=== PATIENT | male | born 1970 | race Caucasian/White ===

== ENCOUNTER 2024-02-15 21:49 | Emergency (ER) | payer MEDICAID, SELFPAY ==
[2024-02-15] VITALS (16 sets, daily range): BP systolic 118–135; BP diastolic 82–86; PULSE 85–103; TEMP 37.6; O2SAT 95–99; BMI 35.4
--- NOTE | 2024-02-15 22:12 | ECG_ITS ---
The [facility] Test Date: 2024-02-15 Pat Name: SINA GONZALES Department: Room: - Gender: Male [employer]: : 1970 Requested By: [id number] Order Number: [id number] Reading MD: JONI HOLM Measurements Intervals [place] Rate: 101 P: 39 SD: 134 QRS: 25 QRSD: 84 T: 43 QT: 326 QTc: 384 Interpretive Statements 1120 Sinus tachycardia 4068 Nonspecific [place] abnormality 9140 abnormal rhythm ECG No previous ECG available for comparison Electronically Signed On 02-18-2024 20:19:37 EST by JONI HOLM
--- NOTE | 2024-02-15 22:12 | ED_ITS ---
HPI - Nausea/Vomiting/Diarrhea General Chief complaint: Nausea/Vomiting/Diarrhea Stated complaint: VOMITING, WEAK Time Seen by Provider: 02/15/24 21:53 History of Present Illness HPI Narrative: 53-year-old male presents for nausea vomiting and diarrhea and feeling weak. He has had this for just over 24 hours. No hematemesis or hematochezia. He has not been around anybody who has been ill. He has not been able to eat or drink much over the past day and he states that he went to another hospital and it was a very long wait so he went home and after he got home he was weak and he fell but did not injure himself. Related Data Previous Rx's ?Medication ?Instructions ?Recorded ondansetron 4 mg disintegrating 4 mg PO Q6H PRN nausea and 02/15/24 tablet vomiting #20 tabs Allergies Allergy/AdvReac Type Severity Reaction Status Date / Time pregabalin (From Lyrica) Allergy hives Verified 02/15/24 22:15 topiramate (From Topamax) Allergy Hives Verified 02/15/24 22:15 Review of Systems ROS Narrative A ten point review of systems is negative except as noted above. [facility] Medical History (Updated 02/15/24 @ 23:53 by Jesus Castro MD) Chronic pain ?G89.29 - Other chronic pain (ICD-10) FH: cholecystectomy ?Z83.79 - Family history of other diseases of the digestive system (ICD-10) Gall bladder disease ?K82.9 - Disease of gallbladder, unspecified (ICD-10) Social History Little interest or pleasure in doing things: not at all Feeling down, depressed, or hopeless: not at all Exam Narrative Exam Narrative: Nurses note and vital signs reviewed and patient is not hypoxic. General: The patient appears in no apparent distress. Skin: Warm, dry, no pallor noted. There is no rash noted. Head: Normocephalic, atraumatic Eye: Normal conjunctiva, no drainage Ears, Nose, Mouth, and Throat: oral mucosa is moist. Nares patent. Cardiovascular: Regular Rate and Rhythm Respiratory: Patient is in no distress, no accessory muscle use, lungs are clear to auscultation, no wheezing, rales or rhonchi GI: Obese soft and nontender Musculoskeletal: The patient has no evidence of calf tenderness, no pitting edema, symmetrical pulses noted bilaterally Neurological: A&O, normal speech Psychiatric: Cooperative Constitutional Vital Signs, click to edit/add: Last Vital Signs Temp 99.6 F 02/15/24 22:08 Pulse 93 H 02/15/24 23:25 Resp 20 02/15/24 23:25 BP 124/82 02/15/24 23:25 Pulse Ox 96 02/15/24 23:25 O2 Del Method Room Air 02/15/24 23:25 Course Vital Signs Vital signs: Vital Signs Temperature 99.6 F 02/15/24 22:08 Pulse Rate 102 H 02/15/24 22:08 Respiratory Rate 18 02/15/24 22:08 Pulse Oximetry 98 02/15/24 22:08 Oxygen Delivery Method Room Air 02/15/24 22:08 Temperature 99.6 F 02/15/24 22:08 Pulse Rate 93 H 02/15/24 23:25 Respiratory Rate 20 02/15/24 23:25 Blood Pressure 124/82 02/15/24 23:25 Pulse Oximetry 96 02/15/24 23:25 Oxygen Delivery Method Room Air 02/15/24 23:25 MDM - Nausea/Vomiting/Diarrhea MDM Narrative Medical decision making narrative: Blood work is essentially normal. He was given IV fluids and IV Zofran and is feeling improved. He is able to tolerate some p.o. liquids now and is discharged home with a prescription for Zofran. Treatment diagnosis and follow- up were discussed with the patient. Differential Diagnosis Differential diagnosis: Likely food poisoning, gastroenteritis and dehydration Lab Data Attestation: I reviewed the patient's lab results. Labs: Lab Results 02/15/24 Range/Units 22:20 WBC 7.6 (4.0-11.0) 10^3/uL RBC 6.11 H (4.70-6.10) 10^6/uL Hgb 16.8 (14.0-18.0) g/dL Hct 50.8 (42.0-54.0) % MCV 83.1 (80.0-94.0) fL MCH 27.5 (25.9-34.0) pg MCHC 33.1 (29.9-35.2) g/dL RDW 12.9 (11.0-15.0) % Plt Count 257 (150-450) 10^3/uL MPV 9.8 (9.5-13.5) fL Neut % (Auto) 71.1 (43.0-75.0) % Lymph % (Auto) 17.0 L (20.5-60.0) % [place] % (Auto) 9.5 (1.7-12.0) % Eos % (Auto) 0.5 L (0.9-7.0) % Baso % (Auto) 0.3 (0.2-2.0) % Neut # (Auto) 5.4 (1.4-6.5) 10^3/uL Lymph # (Auto) 1.3 (1.2-3.8) 10^3/uL [place] # (Auto) 0.7 (0.3-0.8) 10^3/uL Eos # (Auto) 0.0 (0.0-0.7) 10^3/uL Baso # (Auto) 0.0 (0.0-0.1) 10^3/uL Abs Immat Gran (auto) 0.12 H (0.00-0.03) 10^3/uL Imm/Tot Granulo (auto) 1.6 H (0.0-0.5) % Sodium 138 (136-145) mmol/L Potassium 3.4 L (3.5-5.1) mmol/L Chloride 103 (98-107) mmol/L Carbon Dioxide 23.9 (21.0-32.0) mmol/L Anion Gap 14.5 BUN 25.0 H (7.0-18.0) mg/dL Creatinine 1.03 (0.70-1.30) mg/dL Est GFR ( Amer) >60 (>=60 mL/min/1.73m^2) Est GFR (Non-Af Amer) >60 (>=60 mL/min/1.73m^2) BUN/Creatinine Ratio 24.3 Glucose 97 (74-106) mg/dL Calcium 8.7 (8.5-10.1) mg/dL ECG Data Attestation: I personally reviewed and interpreted this ECG as follows: (EKG on my interpretation shows sinus rhythm with a rate of 101. No acute change.) Discharge Plan Discharge Chief Complaint: Nausea/Vomiting/Diarrhea Clinical Impression: Nausea, vomiting, and diarrhea Patient Disposition: Home, Self-Care Time of Disposition Decision: 23:53 Condition: Good Mode of Transportation: Private Vehicle Prescriptions / Home Meds: New ondansetron 4 mg tablet,disintegrating 4 mg PO Q6H PRN (Reason: nausea and vomiting) Qty: 20 0RF Print Language: Kosovan Instructions: Acute Nausea and Vomiting (ED) Referrals: Solitario Johnson [Primary Care Provider] - 1 week
[2024-02-15] MEDS: 0.9 % SODIUM CHLORIDE 1,000 ML 1000 ML IV (22:28)
[2024-02-15] MEDS: ONDANSETRON PF 4 MG/2 ML VIAL IV (22:30)
[2024-02-15 22:55] LABS: Basophils Percent Auto 0.3 % (0.2-2.0); Eosinophils Percent Auto 0.5 % (0.9-7.0); Hematocrit 50.8 % (42.0-54.0); Hemoglobin 16.8 g/dL (14.0-18.0); Immature Granulocytes Abs Auto 0.12 10^3/uL (0.00-0.03); Immature Granulocytes Pct Auto 1.6 % (0.0-0.5); Lymphocytes Absolute Auto 1.3 10^3/uL (1.2-3.8); Mean Corpuscular HGB Conc 33.1 g/dL (29.9-35.2); Mean Corpuscular Hemoglobin 27.5 pg (25.9-34.0); Mean Corpuscular Volume 83.1 fL (80.0-94.0); Mean Platelet Volume 9.8 fL (9.5-13.5); Monocytes Absolute Auto 0.7 10^3/uL (0.3-0.8); Monocytes Percent Auto 9.5 % (1.7-12.0); Neutrophils Absolute Auto 5.4 10^3/uL (1.4-6.5); Neutrophils Percent Auto 71.1 % (43.0-75.0); Platelet Count 257 10^3/uL (150-450); Red Blood Count 6.11 10^6/uL (4.70-6.10); Red Cell Distribution Width 12.9 % (11.0-15.0); White Blood Count 7.6 10^3/uL (4.0-11.0)
[2024-02-15 23:06] LABS: Anion Gap 14.5; BUN Creatinine Ratio 24.3; Calcium 8.7 mg/dL (8.5-10.1); Carbon Dioxide 23.9 mmol/L (21.0-32.0); Chloride 103 mmol/L (98-107); Estimated GFR (African America >60 (>=60 mL/min/1.73m^2); Estimated GFR (Non-African Ame >60 (>=60 mL/min/1.73m^2); Glucose 97 mg/dL (74-106); Potassium 3.4 mmol/L (3.5-5.1); Sodium 138 mmol/L (136-145)
[2024-02-15] MEDS: KETOROLAC TROMETHAMINE 30 MG/ML VIAL IVP (23:09)
[2024-02-16] MEDS: ONDANSETRON PF 4 MG/2 ML VIAL IV (00:03)
== END 2024-02-16 00:15 | disposition home or self-care (01) ==
PROVIDERS: Emergency Provider Emergency Medicine; PCP Family Medicine
DX: R11.2 Nausea with vomiting, unspecified (principal); R19.7 Diarrhea, unspecified; Z91.81 History of falling
CPT/HCPCS: 36415; 80048; 85025; 93005; 96361; 96374; 96375; 96376; 99285; J1885; J2405

== ENCOUNTER 2024-08-22 11:34 | Emergency (ER) | payer MEDICAID, SELFPAY ==
[2024-08-22 11:38] VITALS: BP 146/89; PULSE 93; TEMP 36.6; O2SAT 95; BMI 35.4
--- NOTE | 2024-08-22 11:51 | PC.NURSE ---
rigt ankle and foot swelling and pt reports painful
--- NOTE | 2024-08-22 12:10 | XR_ITS ---
The [address] [address] Patient Name: SINA GONZALES MRN: [id number] date: 1970 Sex: M Assigned Patient Location: ER Current Patient Location: ER Accession/Order Number: [id number] Exam Date: 08/22/2024 12:44 Report Date: 08/22/2024 12:47 At the request of: FIOR JACOB MD Procedure: XR foot RT min 3V XR ankle RT min 3V, XR foot RT min 3V 08/22/2024 12:34 PM SIGNS AND SYMPTOMS: He right foot pain, ankle pain, swelling PROTOCOL: Frontal, lateral, and oblique radiographs of the right ankle and right foot COMPARISON: None FINDINGS: Right ankle: The ankle mortise is preserved. There is no fracture or dislocation. There is a soft tissue swelling. There is mild Achilles surface calcaneal spurring. Right foot: There is mild narrowing of the first metatarsophalangeal joint space. There is no fracture or dislocation. There is an os perineum along the lateral margin of the midfoot which is a normal variant. The joint spaces are preserved. There is nonspecific diffuse soft tissue swelling. XR/XR foot RT min 3V IMPRESSION: Right ankle: No fracture. Nonspecific soft tissue swelling is noted diffusely. Right foot: No fracture. Nonspecific diffuse soft tissue swelling is noted. Impression dictated by: Luis Alberto Freitas M.D. 08/22/2024 12:47 PM Dictation Location: [place] [id number] Electronically authenticated by: [id number] Y Date: 08/22/2024 12:47
--- NOTE | 2024-08-22 12:10 | XR_ITS ---
The [address] [address] Patient Name: SINA GONZALES MRN: [id number] date: 1970 Sex: M Assigned Patient Location: ER Current Patient Location: ER Accession/Order Number: [id number] Exam Date: 08/22/2024 12:44 Report Date: 08/22/2024 12:47 At the request of: FIOR JACOB MD Procedure: XR foot RT min 3V XR ankle RT min 3V, XR foot RT min 3V 08/22/2024 12:34 PM SIGNS AND SYMPTOMS: He right foot pain, ankle pain, swelling PROTOCOL: Frontal, lateral, and oblique radiographs of the right ankle and right foot COMPARISON: None FINDINGS: Right ankle: The ankle mortise is preserved. There is no fracture or dislocation. There is a soft tissue swelling. There is mild Achilles surface calcaneal spurring. Right foot: There is mild narrowing of the first metatarsophalangeal joint space. There is no fracture or dislocation. There is an os perineum along the lateral margin of the midfoot which is a normal variant. The joint spaces are preserved. There is nonspecific diffuse soft tissue swelling. XR/XR ankle RT min 3V IMPRESSION: Right ankle: No fracture. Nonspecific soft tissue swelling is noted diffusely. Right foot: No fracture. Nonspecific diffuse soft tissue swelling is noted. Impression dictated by: Luis Alberto Freitas M.D. 08/22/2024 12:47 PM Dictation Location: [place] [address] Electronically authenticated by: [id number] Y Date: 08/22/2024 12:47
[2024-08-22] MEDS: OXYCODONE HCL/ACETAMINOPHEN 5MG/325MG 1 TAB PO (12:22)
[2024-08-22] MEDS: KETOROLAC TROMETHAMINE 60 MG/2 ML VIAL IM (12:22)
[2024-08-22] MEDS: METHYLPREDNISOLONE SOD SUCC PF 40 MG/ML VIAL IM (12:23)
--- NOTE | 2024-08-22 14:35 | ED.EXTPRO1 ---
HPI - Extremity Problem General Chief complaint: Extremity Problem, Nontraumatic Stated complaint: LOWER EXTREMITY PAIN - GOUT Time Seen by Provider: 08/22/24 12:01 Source: patient Mode of arrival: walk-in History of Present Illness HPI Narrative: The patient is a 53-year-old male is coming to the ER with a right ankle foot pain. That started over the last 24 hours, have a history of gout and he previously was taking allopurinol that was stopped almost a year ago. The patient admits that he does not eat a lot of red meat There is no fever chills or no fall or trauma Patient has been 10 out of 10 pain in the right foot He did take some indomethacin before arrival and he also take Tylenol Related Data Home Medications ?Medication ?Instructions ?Recorded ?Confirmed acetaminophen 300 mg-codeine 60 mg 1 tab PO BID PRN pain 08/22/24 08/22/24 tablet albuterol sulfate 90 mcg/actuation 2 puff inhalation Q4H PRN 08/22/24 08/22/24 aerosol inhaler shortness of breath or wheezing amoxicillin 875 mg tablet 875 mg PO BID 08/22/24 08/22/24 ciclopirox 1 % shampoo 5 ml topical .2 tomes a wk 08/22/24 08/22/24 potassium citrate 15 mEq (1,620 15 meq PO DAILY 08/22/24 08/22/24 mg) tablet,extended release tamsulosin 0.4 mg capsule 0.4 mg PO DAILY 08/22/24 08/22/24 tizanidine 4 mg tablet 4 mg PO BID PRN muscle spasticity 08/22/24 08/22/24 Previous Rx's ?Medication ?Instructions ?Recorded diclofenac sodium 75 mg 75 mg PO BID PRN pain #20 tabs 08/22/24 tablet,delayed release prednisone 50 mg tablet 50 mg PO DAILY 5 days #5 tabs 08/22/24 Allergies Allergy/AdvReac Type Severity Reaction Status Date / Time pregabalin (From Lyrica) Allergy hives Verified 02/15/24 22:15 topiramate (From Topamax) Allergy Hives Verified 02/15/24 22:15 Review of Systems ROS Status of ROS 10 or more systems reviewed and unremarkable except as noted in history and below [facility] Medical History (Updated 08/22/24 @ 14:35 by Noni Burr MD) Chronic pain ?G89.29 - Other chronic pain (ICD-10) FH: cholecystectomy ?Z83.79 - Family history of other diseases of the digestive system (ICD-10) Gall bladder disease ?K82.9 - Disease of gallbladder, unspecified (ICD-10) Social History Little interest or pleasure in doing things: not at all Feeling down, depressed, or hopeless: not at all Exam Narrative Exam Narrative: Nurses notes and vital signs reviewed and patient is not hypoxic. General: Well-appearing and in no apparent distress. Skin: Warm, dry, no pallor noted. No rash. Head: Normocephalic, atraumatic. Right lower extremity: The patient does have edema in the right lower extremity mostly from the mid tibia down his ankle There is no redness and there is edema and tenderness on palpation but the patient have a good anterior tibial pulse and no vascular injury detected or any change in the skin that is concerning for any ischemic incident The patient still have full range of movement in the ankle Constitutional Vital Signs, click to edit/add: Last Vital Signs Temp 97.9 F 08/22/24 11:38 Pulse 93 H 08/22/24 11:38 Resp 08/22/24 11:38 BP 146/89 H 08/22/24 11:38 Pulse Ox 08/22/24 11:38 O2 Del Method Room Air 08/22/24 11:38 Course Vital Signs Vital signs: Vital Signs Temperature 97.9 F 08/22/24 11:38 Pulse Rate 93 H 08/22/24 11:38 Respiratory Rate 18 08/22/24 11:38 Blood Pressure 146/89 H 08/22/24 11:38 Pulse Oximetry 08/22/24 11:38 Oxygen Delivery Method Room Air 08/22/24 11:38 Temperature 97.9 F 08/22/24 11:38 Pulse Rate 93 H 08/22/24 11:38 Respiratory Rate 08/22/24 11:38 Blood Pressure 146/89 H 08/22/24 11:38 Pulse Oximetry 08/22/24 11:38 Oxygen Delivery Method Room Air 08/22/24 11:38 MDM - Extremity (Nontraumatic) MDM Narrative Medical decision making narrative: Duplex of the right lower extremity showed no DVT X-ray of the right ankle and foot shows only edema of the soft tissue Patient have no tenderness upon palpation of the posterior aspect of the right ankle and no suspicion of any Achilles injury at the moment But the patient presentation concerning for gout attack and he was started on prednisone mention to Luis for pain Patient instructed on hydration and elevation of the leg and also monitoring symptoms The patient is to follow up with primary care physician in next 2-3 days or to return to the emergency department should any of the signs or symptoms worsen or new symptoms develop. The patient agrees with the following Diagnosis and Treatment plan and the patient will be discharged home. Discharge Plan Discharge Chief Complaint: Extremity Problem, Nontraumatic Clinical Impression: Arthritis, Gout attack Patient Disposition: Home, Self-Care Time of Disposition Decision: 14:35 Condition: Good Prescriptions / Home Meds: New prednisone 50 mg tablet 50 mg PO DAILY 5 Days Qty: 5 0RF diclofenac sodium 75 mg tablet,delayed release (DR/EC) 75 mg PO BID PRN (Reason: pain) Qty: 20 0RF No Action acetaminophen-codeine 300-60 mg tablet 1 tab PO BID PRN (Reason: pain) albuterol sulfate 90 mcg/actuation HFA aerosol inhaler 2 puff INHALATION Q4H PRN (Reason: shortness of breath or wheezing) amoxicillin 875 mg tablet 875 mg PO BID ciclopirox 1 % shampoo 5 ml TOPICAL .2 tomes a wk potassium citrate 15 mEq tablet extended release 15 meq PO DAILY tamsulosin 0.4 mg capsule 0.4 mg PO DAILY tizanidine 4 mg tablet 4 mg PO BID PRN (Reason: muscle spasticity) Print Language: Icelandic Instructions: Gout (ED) Additional Instructions: Please take all the medication with food not on empty stomach Referrals: JANAE VANCE [Primary Care Provider, Family Practice] - 1 week Discharge Date/Time: 08/22/24 14:44
== END 2024-08-22 14:44 | disposition home or self-care (01) ==
PROVIDERS: Emergency Provider Emergency Medicine; PCP Family Medicine
DX: M13.871 Other specified arthritis, right ankle and foot (principal); M10.9 Gout, unspecified; M25.571 Pain in right ankle and joints of right foot; R22.41 Localized swelling, mass and lump, right lower limb
CPT/HCPCS: 73610; 73630; 93971; 96372; 99285; J1885; J2919